=== PATIENT | male | born 1960 | race Two or more races ===

== ENCOUNTER 2020-10-23 13:25 | Outpatient (CLI) | payer OTHER | END 2020-10-24 10:43 | disposition home or self-care (01) | LOC: SONOGRAMA 13:25 → MAMO-SONO 14:00 → SONOGRAMA 10-24 10:43 | PROVIDERS: ATTEND Specialist | DX: N43.42 Spermatocele of epididymis, multiple (principal); I86.1 Scrotal varices; K40.90 Unilateral inguinal hernia, without obstruction or gangrene, not specified as recurrent ==

== ENCOUNTER 2020-11-08 06:00 | Day surgery (SDC) | payer OTHER | END 2020-11-08 17:30 | disposition home or self-care (01) | LOC: CIR.AMB 06:00 | PROVIDERS: ATTEND Specialist | DX: K40.90 Unilateral inguinal hernia, without obstruction or gangrene, not specified as recurrent (principal); Z20.822 Contact with and (suspected) exposure to COVID-19 ==